=== PATIENT | male | born 1960 | race Caucasian/White ===

== ENCOUNTER 2022-12-05 19:34 | Emergency (ER) | payer OTHER, SELFPAY ==
--- NOTE | ~2022-12-05 | XR_ITS ---
EXAM: XR ankle RT min 3V DATE: 12/05/2022 19:46 HISTORY: PAIN/SWELLING FROM INJURY ON WEDNESDAY . COMPARISON: None available. FINDINGS: Normal mineralization. Old medial malleolus avulsion fragment. No acute fracture or disloc ation. No lytic or blastic lesion. Scattered degenerative change. No erosion or periosteal change. So ft tissues within normal limits. IMPRESSION: No acute osseous finding in the right ankle. Reviewed, dictated and finalized at location K.
--- NOTE | 2022-12-05 19:40 | ED.LOWEXIN ---
HPI - Extremity Injury (Lower) General Chief Complaint: Extremity Injury, Lower Stated Complaint: Right Foot Pain Time Seen by Provider: 12/05/22 19:40 Source: patient Mode of arrival: ambulatory Limitations: no limitations History of Present Illness HPI Narrative: 61-year-old male presents with complaint rate ankle pain. Patient states that he injured himself approximately 3 days ago. 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 Reports he continue to work and did really have a lot of pain. States over the past 2 days he has noticed increase in pain and swelling. Ambulatory with slight limp. Concerned he may have a fracture. All systems reviewed and negative except as noted above. Related Data Home Medications Medication Instructions Recorded Confirmed Proventil 12/05/22 Wixela Inhub 12/05/22 amlodipine 12/05/22 atorvastatin 12/05/22 Allergies Allergy/AdvReac Type Severity Reaction Status Date / Time No Known Allergies Allergy Verified 12/05/22 19:45 Review of Systems Review of Systems: CONSTITUTIONAL: Denies fever, chills, or sweats. EYES: Denies visual changes, redness, or discharge. ENT: Denies rhinorrhea, congestion, sore throat, or otalgia. CARDIOVASCULAR: Denies chest pain, palpitations, or edema. RESPIRATORY: Denies cough or dyspnea. GASTROINTESTINAL: Denies abdominal pain, nausea, vomiting, or diarrhea. GENITOURINARY: Denies dysuria or hematuria. SKIN: Denies rash or itching. MUSCULOSKELETAL: Denies back pain, joint pain, or myalgia. Reports pain and swelling to right ankle. NEUROLOGIC: Denies headache, numbness, or weakness. PSYCHIATRIC: Denies anxiety or depression. All other systems reviewed are negative, except as documented in HPI. PMFSH Comments At time of signature, agree with nursing past medical, surgical, social and family history. There is no relevant family history pertinent to the presenting complaint. Exam Narrative: GENERAL: This is a well-nourished, well-developed patient, in no apparent distress. HEAD: normocephalic, atraumatic. EYES: PERRL. Sclera clear/white. Vision is grossly intact. EARS: External ears normal NOSE: External nose normal NECK: Neck supple, non-tender without lymphadenopathy, masses or thyromegaly. CARDIOVASCULAR: Regular rate and rhythm without murmurs, gallops, or rubs. RESPIRATORY: Clear to auscultation. Breath sounds equal bilaterally. No wheezes, rales, or rhonchi. SKIN: warm, Dry, intact with no suspicious lesions or rash, good texture and turgor. NEURO: awake, alert, and oriented to person, place and time. There were no obvious focal neurologic abnormalities. EXTREMITIES: Erythema and swelling to anterior aspect of right ankle with tenderness on palpation. Warm to touch. Skin appears intact with no open wounds. Course Course Level of Care: Express Care Visit Vital Signs Vital signs: Vital Signs Temperature 36.4 C L 12/05/22 19:46 Pulse Rate 76 12/05/22 19:46 Respiratory Rate 14 12/05/22 19:46 Blood Pressure 152/77 H 12/05/22 19:46 Pulse Oximetry 100 12/05/22 19:46 Oxygen Delivery Room Air 12/05/22 19:46 Temperature 36.4 C L 12/05/22 19:46 Pulse Rate 76 12/05/22 19:46 Respiratory Rate 14 12/05/22 19:46 Blood Pressure 152/77 H 12/05/22 19:46 Pulse Oximetry 100 12/05/22 19:46 Oxygen Delivery Room Air 12/05/22 19:46 Reviewed MDM - Extremity Injury (Lower) MDM Narrative Medical decision making narrative: right ankle x-ray negative fracture. Due to redness, warmth and swelling will prescribe antibiotics for concern for cellulitis. Patient agrees with plan of care. Patient is aware of diagnosis, understands and agrees to treatment plan. Anticipatory guidance given. Patient agrees to follow-up as directed and is aware of reasons to seek care at the emergency department. Portions of this record may have been created with maddie
[2022-12-05 19:46] VITALS: BP 152/77; PULSE 76; RESP 14; TEMP 36.4; O2SAT 100
== END 2022-12-05 20:12 | disposition home or self-care (01) ==
PROVIDERS: Emergency Provider Nurse Practitioner Family
DX: L03.115 Cellulitis of right lower limb (principal); S90.01XA Contusion of right ankle, initial encounter; W22.8XXA Striking against or struck by other objects, initial encounter; E78.00 Pure hypercholesterolemia, unspecified; I10 Essential (primary) hypertension
CPT/HCPCS: 73610; 99203; G0463

== ENCOUNTER 2025-05-11 13:58 | Emergency (ER) | payer OTHER, SELFPAY ==
--- NOTE | ~2025-05-11 | XR_ITS ---
XR knee RT 3V 05/11/2025 15:33 Indication: Right knee pain and swelling Procedure: 3 views right knee Comparison: No prior studies for comparison. 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 Mild osteoarthritis of the knee. No significant joint effusion. No acute fracture or traumatic malalignment. Impression: 1: Mild osteoarthritis of the right knee. Reviewed, dictated and finalized at location O. [employer] Impression: 1: Mild osteoarthritis of the right knee.
[2025-05-11 14:13] VITALS: BP 157/75; PULSE 60; RESP 16; TEMP 36; O2SAT 100
--- NOTE | 2025-05-11 15:11 | ED_ITS ---
HPI - Extremity Injury (Lower) General Chief Complaint: Extremity Injury, Lower Stated Complaint: R Knee pain Time Seen by Provider: 05/11/25 15:11 Source: patient, RN notes reviewed and old records reviewed Mode of arrival: ambulatory Limitations: no limitations History of Present Illness HPI Narrative: 64-year-old male presents to the [facility] with 2 day history of right knee pain and swelling. States that it does this every to 2 years. Gets followed by the [facility]. Patient was concerned that he ?tore something. ? Does have good range of motion. No trauma. States that he was jogging the next day was bike riding. Has tried [id number] products Related Data Home Medications ?Medication ?Instructions ?Recorded ?Confirmed ?Last Taken ?Type Proventil 12/05/22 Unknown History Wixela Inhub 12/05/22 Unknown History amlodipine 12/05/22 Unknown History atorvastatin 12/05/22 Unknown History Allergies Allergy/AdvReac Type Severity Reaction Status Date / Time No Known Allergies Allergy Verified 12/05/22 19:45 Review of Systems Review of Systems: All systems reviewed & are unremarkable except as noted in HPI and below Constitutional: Constitutional: Reports no additional constitutional complaints Cardiovascular: Cardiovascular: Reports no additional cardiovascular complaints, Denies chest pain and Denies dyspnea Respiratory: Respiratory: Reports no additional respiratory complaints, Denies chest congestion, Denies cough and Denies dyspnea Musculoskeletal: Musculoskeletal: Reports as per HPI, Reports arthralgias and Reports joint swelling Integumentary/Breasts: Skin/Breast: Reports system reviewed and no additional complaints, except as docu PMFSH Comments At the time of my signature, I reviewed and agree with the nursing past medical, surgical, social, and family history. There is no relevant family history pertinent to the patient complaint. Exam Const: General: cooperative, healthy appearing, comfortable, no acute distress, well developed, alert and well nourished Nutritional Appearance: well nourished Orientation/consciousness: patient oriented x3 Limitations: no limitations HENMT: Head: normal to inspection Eyes: General: appearance normal, both eyes and all related structures Alignment and Position: alignment normal Neck: Neck: normal visual inspection, full ROM, no lymphadenopathy and no meningeal signs Chest: Chest palpation & inspection: normal inspection of the chest Resp: Effort & Inspection: normal respiratory effort and able to speak in complete sentences Cardio: Rate: regular rate Skin: General skin exam: normal color and no rashes or lesions noted Neuro: General: patient oriented x3, gait normal, moves all extremities and no meningeal signs Cognition (Neuro): normal cognition Speech: normal speech Gait exam (Neuro): Normal gait present Extrem: General: normal to inspection, full ROM, capillary refill normal and normal gait Right lower extremity: knee Details: swelling (Generalized) and normal ROM Psych: Appearance: grossly normal and well kempt Mental Status: mental status grossly normal Speech and movement: Normal speech and movement present and Clear speech present Affect: normal affect Attitude: cooperative Course Course Level of Care: Express Care Visit Vital Signs Vital signs: Vital Signs Temperature 96.8 F L 05/11/25 14:13 Pulse Rate 60 05/11/25 14:13 Respiratory Rate 16 05/11/25 14:13 Blood Pressure 157/75 H 05/11/25 14:13 Pulse Oximetry 100 05/11/25 14:13 Temperature 96.8 F L 05/11/25 14:13 Pulse Rate 60 05/11/25 14:13 Respiratory Rate 16 05/11/25 14:13 Blood Pressure 157/75 H 05/11/25 14:13 Pulse Oximetry 100 05/11/25 14:13 reviewed MDM MDM Narrative Medical decision making narrative: Patient sitting in exam room. Patient is nontoxic, vitals stable. Patient presents with right knee pain and swelling for 2 days. Was hoping to get an MRI due to as being in the same building. It attempted to explain to patient we can only offered x-ray. MRIs would have to be ordered by either his primary or orthopedist. X-ray with no acute findings, osteoarthritis noted. Patient is appropriate for outpatient treatment with close follow-up. Discharge instructions reviewed with patient, as well as provided in writing per nursing staff. The instructions also include specific and strict return/GO TO THE ER as well as f/u information. All questions have been answered, and the patient deny any further questions with discharge and discharge plan. Some parts of this dictation were generated by voice recognition software and may contain typographical and/or grammatical inaccuracies. Differential Diagnosis Differential Diagnosis: Differential diagnostic considerations for lower extremity injury include ankle sprain/strain, acute internal derangement of knee, fracture of femur, fracture of hip, puncture wound of foot, fracture of toe, fracture of ankle, tendon rupture (achilles/patellar/quadriceps). Imaging Data Radiologist's impression: ITS Impressions Knee X-Ray 05/11/25 15:34 Impression: 1: Mild osteoarthritis of the right knee. XR knee RT 3V 05/11/2025 15:33 Indication: Right knee pain and swelling Procedure: 3 views right knee Comparison: No prior studies for comparison. 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 Mild osteoarthritis of the knee. No significant joint effusion. No acute fracture or traumatic malalignment. Impression: 1: Mild osteoarthritis of the right knee. Discharge Plan Discharge Clinical Impression: Osteoarthritis of right knee Patient Disposition: Home Condition: Stable Instructions: Swollen Knee Joint (ED) Additional Instructions: Your Xray did not show a fracture. Ice should be applied to help reduce swelling. It can be used for 20 to 30 minutes, every 2-3 hours while awake. Do not apply ice directly to your skin. My knee support in be worn to help reduce the inflammation help with the discomfort. You can alternate ibuprofen 600mg and Tylenol 650mg every 4 hours as needed for pain Please schedule a follow-up visit with your personal physician for further evaluation and treatment within 2 weeks especially if symptoms persist. For new or worsening symptoms go directly to the emergency room Patient Language: Uzbek Prescriptions: No Action Proventil Wixela Inhub amlodipine atorvastatin ibuprofen 600 mg tablet 600 mg PO Q6H PRN (Reason: pain) Qty: 30 0RF Follow-up/Referrals: Roberto Delacruz MD [Physician, Orthopedics] - 3 Days [facility] [Primary Care Provider, Medical] Time of Disposition: 15:43
== END 2025-05-11 15:50 | disposition home or self-care (01) ==
PROVIDERS: Emergency Provider Nurse Practitioner
DX: M17.11 Unilateral primary osteoarthritis, right knee (principal)
CPT/HCPCS: 73562; 99213; G0463